=== PATIENT | female | born 1945 | race Caucasian/White ===

== ENCOUNTER → 2018-10-20 13:42 | Outpatient (CLI) | payer MEDICARE, SELFPAY ==
--- NOTE | 2018-10-20 | DI.MG.S_ITS ---
BILATERAL DIGITAL SCREENING MAMMOGRAM 3D/2D WITH CAD WITH AUGMENTATION: 10/20/2018 CLINICAL: Routine screening. Comparison is made to exams dated: 03/17/2017 mammogram, 01/20/2016 mammogram, and 03/28/2014 mammogram - [facility]. The tissue of both breasts is predominantly fatty. Current study was also evaluated with a Computer Aided Detection (CAD) system. Bilateral breast implants are stable and intact. No significant masses, calcifications, or other findings are seen in either breast. There has been no significant interval change. IMPRESSION: NEGATIVE There is no mammographic evidence of malignancy. A 1 year screening mammogram is recommended. This exam was interpreted at Station ID: [id number]. NOTE: For mammograms, a report in lay terms will be sent to the patient. Approximately 15% of breast malignancies will not be visualized mammographically. In the management of a palpable breast mass, a negative mammogram must not discourage biopsy of a clinically suspicious lesion. Electronically Signed By: Richard lazaro/dawn:10/20/2018 17:46:34 letter sent: Normal Exam ACR BI-RADS Category 1: Negative [id number]
== END ==
PROVIDERS: Visit Provider Internal Medicine
DX: Z12.31 Encounter for screening mammogram for malignant neoplasm of breast (principal); Z78.0 Asymptomatic menopausal state
CPT/HCPCS: 77063; 77067; 77080

== ENCOUNTER 2018-10-25 12:24 | Day surgery (SDC) | payer MEDICARE, SELFPAY ==
[2018-10-25] VITALS (9 sets, daily range): BP systolic 75–110; BP diastolic 51–61; PULSE 73–81; RESP 11–16; TEMP 35.9–37.4; O2SAT 91–100; BMI 25.4
[2018-10-25] MEDS: SODIUM CHLORIDE 0.9% 1,000 ML 150 ML IV (13:07)
--- NOTE | 2018-10-25 13:16 | PM.HP.1 ---
History of Present Illness History of Present Illness Date Patient Seen: 10/25/18 Time Patient Seen: 13:16 Chief complaint: [id number] Narrative: Screening for colorectal cancer. Last colonoscopy over 20 years ago Patient History Social History household members: spouse Family & Social History Social History: household members spouse Meds Home Medications and Allergies Home Medications Medication Instructions Recorded Confirmed Type ascorbic acid (vitamin C) [Vitamin 500 mg PO DAILY 10/25/18 10/25/18 History C] aspirin [Aspirin Low Dose] 81 mg PO DAILY 10/25/18 10/25/18 History atorvastatin 20 mg PO DAILY 10/25/18 10/25/18 History cholecalciferol (vitamin D3) 1,000 unit PO DAILY 10/25/18 10/25/18 History [Vitamin D3] coQ10 (ubiquinol) 300 mg PO DAILY 10/25/18 10/25/18 History diclofenac sodium [Voltaren-XR] 75 mg PO DAILY 10/25/18 10/25/18 History duloxetine 60 mg PO DAILY 10/25/18 10/25/18 History montelukast 10 mg PO QPM 10/25/18 10/25/18 History zlrffezempnd-xaua-xmacj acid 1 tab PO DAILY 10/25/18 10/25/18 History [Multi-Day with Iron] olmesartan-hydrochlorothiazide 0.5 tab PO DAILY 10/25/18 10/25/18 History [Benicar HCT] omega 4-ssp-ean-fish oil [Fish Oil] 1 cap PO DAILY 10/25/18 10/25/18 History vitamin B complex 1 tab PO DAILY 10/25/18 10/25/18 History Allergies Allergy/AdvReac Type Severity Reaction Status Date / Time No Known Drug Allergies Allergy Verified 10/25/18 13:01 Exam Vital Signs (past 8 hours): - 10/25/18 13:01 Temperature 98.2 F Pulse Rate 74 Respiratory Rate 16 Blood Pressure 110/60 Pulse Oximetry 100 Oxygen Delivery Method Room Air Narrative Exam Narrative: Oropharynx free of lesions Chest clear to auscultation and percussion Cardiac exam reveals no S3 or murmur Assessment & Plan Assessment & Plan narrative: Screening for colorectal cancer. Need for colonoscopy. Risks, benefits, alternatives have been explained.
--- NOTE | 2018-10-25 13:17 | PM.OP.ENDO ---
Operative Date/Time/Diagnoses Date of procedure: 10/25/18 Time of procedure: 13:17 Pre-op diagnosis: See indication and findings Procedure & Clinicians Study performed: Colonoscopy Same procedure as scheduled: Yes Indications: Screening Surgeon: Adrienne Liz Procedure Notes Procedure in detail: After informed consent was obtained the patient was placed in left lateral decubitus position. The video colonoscope was introduced the rectum slowly advanced to the cecum. Preparation was excellent. On slow withdrawal mucosa was carefully examined. The scope was removed. The patient tolerated the procedure well. Blood loss none Complications none Sedation Total sedation time 16 minutes Versed 4 mg fentanyl 100 micro g IV titration Findings 1. Very tortuous sigmoid colon with some diverticulosis 2 otherwise negative colonoscopy to cecum. Ms. Muniz does not need follow-up colonoscopy for 10 years. I will only have performed if she is in excellent health. All
[2018-10-25] MEDS: MIDAZOLAM 5 MG/5 ML VIAL IV (14:05)
[2018-10-25] MEDS: fentaNYL 250 MCG/5 ML INJ IV (14:05)
== END 2018-10-25 14:50 | disposition home or self-care (01) ==
LOC: ENDO 12:27
PROVIDERS: PCP Internal Medicine; Visit Provider Internal Medicine Gastroenterology
PROC: 0DJD8ZZ Inspection of Lower Intestinal Tract, Via Natural or Artificial Opening Endoscopic (ICD-10-PCS; CPT 45378; principal; 2018-10-25 13:30)
DX: Z12.11 Encounter for screening for malignant neoplasm of colon (principal); K57.30 Diverticulosis of large intestine without perforation or abscess without bleeding
CPT/HCPCS: G0121; J2250; J3010

== ENCOUNTER → 2019-03-12 13:47 | Outpatient (CLI) | payer MEDICARE, SELFPAY ==
--- NOTE | 2019-03-12 | DI.MRI.S_ITS ---
PROCEDURE: MR CERVICAL SPINE WO CON INDICATIONS: Cervicalgia TECHNIQUE: Noncontrast sagittal T1 spin echo and T2 fast spin echo, sagittal STIR, foraminal oblique sagittal T2 fast spin echo, and axial gradient echo or T2 fast spin echo through the cervical spine. COMPARISON: [facility] [place], CR, XR CERVICAL SPINE 2 OR 3 VIEWS, 02/28/2019, 15:33. [facility], , C-SPINE WITHOUT CONTRAST, 04/29/2014, 16:54. FINDINGS: Image quality: Excellent. Alignment and Curvature: Anterior fusion is present at C3-C5. There is trace anterolisthesis of C5 on C6 and trace retrolisthesis of C6 on C7. Bone Marrow: Marrow demonstrates normal overall signal. Spinal Cord: Visualized spinal cord has normal size and signal. No cerebellar tonsillar herniation. Paraspinous Soft Tissues: No paravertebral masses. Prevertebral soft tissues are normal in thickness. Mild fluid is noted within the left mastoid air cells. Recommend correlation of potential mastoiditis. Discs: Moderate to severe desiccation is present throughout the cervical spine. C2-C3: Minimal disc bulge without spinal stenosis. Mild bilateral foraminal narrowing with uncovertebral hypertrophy. C3-C4: Postsurgical changes are present. Mild spinal stenosis, improved compared to prior exam.. Mild right and minimal left foraminal narrowing with uncovertebral hypertrophy. C4-C5: Postsurgical changes are present. Mild spinal stenosis is present, mildly improved. Moderate right foraminal narrowing with uncovertebral hypertrophy. C5-C6: Postsurgical changes are present. Moderate spinal stenosis is present. Foraminal are not well visualized secondary to artifact. There is likely at least moderate bilateral foraminal narrowing. No significant interval change. C6-C7: Mild disc bulge with mild spinal stenosis. Mild bilateral foraminal narrowing, slightly progressive compared to prior exam. C7-T1: No disc bulge, spinal stenosis or foraminal narrowing. No interval change. IMPRESSION: 1. Postsurgical changes as above. 2. Multilevel degenerative and surgical changes as above with areas of progression/improvement as noted. 3. Multilevel spinal stenosis most notable at C5-6. 3. Multilevel foraminal narrowing most notable at C4-5 and C5-6. Dictated by: Yudi Kruse M.D. on 03/12/2019 at 17:05 Approved by: Yudi Kruse M.D. on 03/12/2019 at 17:17
== END ==
PROVIDERS: PCP Internal Medicine; Visit Provider Orthopaedic Surgery
DX: M54.2 Cervicalgia (principal); M47.812 Spondylosis without myelopathy or radiculopathy, cervical region; Z98.1 Arthrodesis status
CPT/HCPCS: 72141

== ENCOUNTER 2019-04-10 06:08 | Day surgery (SDC) | payer MEDICARE, SELFPAY ==
[2019-03-27 09:56] VITALS: BMI 26.9
[2019-04-10] VITALS (22 sets, daily range): BP systolic 112–161; BP diastolic 54–135; PULSE 80–107; RESP 11–79; TEMP 36.3–37.1; O2SAT 90–99; BMI 25.4
--- NOTE | 2019-04-10 | DI.RAD.S_ITS ---
PROCEDURE: XR CERVICAL SPINE 2V OR 3V INDICATIONS: C4-5, C5-6 ACDF 1 ALMAS, 1 MOBIC TECHNIQUE: 2 view(s) of the cervical spine were acquired. COMPARISON: [facility] [place], DANE, XR CERVICAL SPINE 2 OR 3 VIEWS, 02/28/2019, 15:33. FINDINGS: Bones: Immediate postoperative examination of this patient with prior anterior fusion plate crossing C3-C4 crossing C3-C4. This plate remains,, and there now has been an intervertebral staple fixation between the inferior aspect of C4 and the superior aspect of C5 with interbody disc prosthesis placed dorsal to the metallic device. Additionally, at C5-6 and articulating intervertebral disc prosthesis has been placed as a new finding. Soft tissues: No prevertebral soft tissue swelling. IMPRESSION: Stable positioning of prior anterior fusion plate crossing C3-C4. New placement of C4-5 and C5-6 intervertebral disc devices and a fusion staple. Dictated by: Anton Claudio M.D. on 04/10/2019 at 10:08 Approved by: Anton Claudio M.D. on 04/10/2019 at 10:12
[2019-04-10] MEDS: LACTATED RINGERS 1,000 ML 42 ML IV ×2 (07:00→08:45)
--- NOTE | 2019-04-10 07:14 | PM.PREOP ---
Pre-operative Note Interval Note History & Physical reviewed/Exam performed by Physician: Yes Changes to H&P: No
--- NOTE | 2019-04-10 07:31 | SUR.OPER ---
Supine, head on gel donut. Arms padded with gel pads, tucked at sides, towel roll under shoulders. Safety belt at thigh. Legs uncrossed.
[2019-04-10] MEDS: CEFAZOLIN 1 GM/50 ML FROZ.PIGGY IV ×2 (07:50→17:03)
[2019-04-10] MEDS: SODIUM CHLORIDE 0.9% 1,000 ML, GENTAMICIN 80 MG IRR (08:20)
[2019-04-10] MEDS: THROMBIN (RECOMBINANT) 5,000 UNIT VIAL 5000 UNIT TOP (08:21)
[2019-04-10] MEDS: BUPIVACAINE 0.25% W/ EPI 30 ML VIAL INJ (08:22)
--- NOTE | 2019-04-10 09:12 | PM.OP.1 ---
Operative Date/Time/Diagnoses Date of procedure: 04/10/19 Time of procedure: 09:13 Pre-op diagnosis: Cervical stenosis with myelopathy Post-op diagnosis: same Procedure & Clinicians Procedure: C4-5 ACDF with cage Iliac crest bone graft aspirate C5-6 anterior disc replacement Use of microscope Same procedure as scheduled: Yes Indications: [age] year old female with intractable pain from cervical stenosis. They had failed conservative management and requested operative intervention. Risks and benefits of surgery were discussed and appropriate consents were obtained. Surgeon: Piter Padilla Basin Finish Operator Tig Welder: Willa Cain Anesthesia Type: General Operative Notes Findings: None Closure Type: primary Specimen(s): none sent Prosthetic devices, grafts, tissues, transplants, or devices: Roseann ALMAS-C and Mobi-C Estimated Blood Loss (mL): 5 Blood products transfused: none Procedure in detail: Patient was brought to the operating room and intubated on the table. A time-out was performed. Preoperative antibiotics were given. The neck was prepped and draped in the standard sterile fashion. We made a 3 cm oblique incision through her previous cervical scar. We used Bovie to go through the platysma and then did a standard anterolateral blunt dissection down to the precervical fascia. Fascia was nicked and elevated up. A marker was placed and x-ray was taken for localization. We then subperiosteally elevated up the longus colli muscles. Self-retaining retractors were placed. [place] pins were placed. We then brought in the microscope. A scalpel used to perform an annulotomy. We then used a combination of pituitaries and curettes and Kerrison to perform a complete anterior diskectomy at C4-5. We used the bur to take down the posterior osteophytes. We took down the PLL and used Kerrison to remove any posterior disc material and osteophytes. At the end we could from the nerve hook cephalad caudally and out the foramen and everything was opened. A small stab incision was made over the left anterior iliac crest. A Jamshidi needle was advanced into the pelvis and 2 mL of bone marrow was aspirated. We then used the trials. We then packed a 15.5 x 14 x 6 mm ALMAS-C cage with Primagen bone graft and the iliac crest harvest. The cage was placed under fluoroscopic guidance. We then placed our two locking plates and confirmed with x-ray. We then went down to C5-6. Again a complete diskectomy was performed with pituitaries and Kerrisons and curettes. We did not use the bur as this was a disc replacement level. We took down the PLL and removed the posterior osteophytes. We used the parallel doweling machine operator to open up the disc space. We then trialed and then placed a [id number] Mobi-C artificial disc replacement under fluoroscopic guidance. The self-retaining retractors and [place] pins were removed and final x-rays taken. The wound was irrigated. There was no bleeding. The carotid was beating nicely. The platysma was closed. The superficial was closed. The skin was closed. A sterile dressing was placed. They were then extubated and brought to recovery room with no complications. Complications: none Post-operative Condition: stable Disposition: PACU Plan for aftercare: Inpatient. Overnight admission. Mobilize as tolerated. Soft cervical collar for comfort
[2019-04-10] MEDS: HYDROMORPHONE 2 MG INJ IV ×4 (09:38→10:25)
[2019-04-10] MEDS: fentaNYL 100 MCG/2 ML INJ IV ×2 (09:57→10:02)
[2019-04-10] MEDS: OXYCODONE/ACETAMINOPHEN 5/325 TABLET 1 TAB PO ×2 (10:32→10:58)
[2019-04-10] MEDS: LACTATED RINGERS 1,000 ML 125 ML IV ×2 (12:21→21:38)
--- NOTE | 2019-04-10 12:36 | PC.ADMIT ---
[email or web address] [facility] Admission Note: The patient,Tanesha Muniz,73 y/o, was given written information regarding hospital policies, unit procedures and contact persons. Patient's smoking status: Former smoker. Vital Signs - 8 hr 04/10/19 06:50 04/10/19 09:27 04/10/19 09:33 Temperature 97.9 F 97.3 F L Pulse Rate 80 89 88 Respiratory Rate 15 24 21 Blood Pressure 145/81 H 115/64 114/60 Pulse Oximetry 99 94 97 04/10/19 09:38 04/10/19 09:42 04/10/19 09:47 Temperature Pulse Rate 83 85 98 H Respiratory Rate 12 11 L 17 Blood Pressure 121/73 126/70 127/72 Pulse Oximetry 96 97 98 04/10/19 09:53 04/10/19 09:58 04/10/19 10:03 Temperature Pulse Rate 94 H 95 H 106 H Respiratory Rate 22 71 H 79 H Blood Pressure 116/73 161/135 H 119/54 L Pulse Oximetry 96 95 96 04/10/19 10:08 04/10/19 10:12 04/10/19 10:18 Temperature Pulse Rate 97 H 103 H 99 H Respiratory Rate 27 H 26 H 27 H Blood Pressure 121/70 131/69 112/64 Pulse Oximetry 94 94 94 04/10/19 10:33 04/10/19 10:48 04/10/19 11:03 Temperature Pulse Rate 98 H 97 H 105 H Respiratory Rate 18 13 13 Blood Pressure 128/55 L 124/70 118/63 Pulse Oximetry 93 92 91 04/10/19 11:30 04/10/19 11:51 04/10/19 12:00 Temperature 98.7 F 98.1 F 97.8 F Pulse Rate 107 H 107 H 105 H Respiratory Rate 12 12 14 Blood Pressure 135/71 135/71 133/70 Pulse Oximetry 90 L 90 L 94 04/10/19 12:30 Temperature 98.0 F Pulse Rate 93 H Respiratory Rate 16 Blood Pressure 125/62 Pulse Oximetry 94 Patient came to acute care floor at 1130. Patient is accompanied by her . Patient attempted to void on bedside commode, but was unable to. Bladder scanner read 220mL, patient educated to try again with assistance soon. Will continue to monitor for bladder retention. Patient did have some dizziness while standing and de-sats to 88% on RA initially, but was able to transfer to bedside commode with FWW and 1 person 1ea to get to the side of the bed and SBA ambulating. O2 saturation was able to increase with use of IS. Patient states her pain is tolerable at 4/10 currently. Dressing to incision was marked by PACU, noting shadowing serosanguineous drainage. Patient currently resting in bed with ice pack and cervical collar in place.
[2019-04-10] MEDS: TRAMADOL 50 MG TABLET PO ×3 (13:38→21:36)
--- NOTE | 2019-04-10 14:06 | CM.DANOTE ---
DCP: Case received, EMR reviewed and met with patient. Introduced self and role. Was able to meet with patient briefly to obtain some information regarding her baseline activity level and living situation. DCP assessment completed with information currently available. Patient is a 73 year old female who admitted early this morning to the care of the orthopedic team. PCP: Dr. Soto. Payer: confirmed: Medicare/[employer]. Patient came to the hospital for a surgical procedure. She had C4-5 ACDF. Patient has history of cervical stenosis. Met briefly with patient in her room. She just had surgery this morning. Patient laying flat in the bed with cervical collar. She is alert and oriented. Confirmed that she resides in [facility] with her , Kishore. She is independent and has been driving. Patient also mentioned that she has history of Fibramylgia. P: DCP to continue to follow closely. Patient should be able to go home when she is medically stable, and cleared by Angela Gibson RN/Director Of Cardiopulmonary Services
--- NOTE | 2019-04-10 14:55 | PT.IIE ---
Current Diagnoses Strain of muscle, fascia and tendon at neck level, initial encounter (04/10/19) Arthrodesis status (04/10/19) Surgery Performed Operation Date: 04/10/19 07:45 Actual Procedures p C45 anterior cervical discectomy and fusion w/bone graft, C56 anterior discectomy and artificial disc replacement - Piter Padilla MD Surgical History (Last Updated 03/27/19 @ 10:01 by Xenia Santos RN) History of hysterectomy (Acute) Hx of blepharoplasty (Acute) Hx of breast augmentation (Acute) Hx of tonsillectomy (Acute) S/P cervical spinal fusion (Acute ~2015) Status post Mohs micrographic surgery for basal cell carcinoma (BCC) (Acute) Medical History (Last Updated 03/27/19 @ 10:28 by Xenia Santos RN) Ankle fracture, right (Acute) Anxiety (Acute) Arthritis (Acute) Fibromyalgia (Acute) Heart murmur (Acute) HTN (hypertension) (Acute) Hx of ectopic (Acute) Iron deficiency anemia (Acute) Syncope (Acute) Physical Therapy Inpatient Evaluation/Re-Eval M1 PT/OT-IP Prior Functional Status Start: 04/10/19 17:20 Freq: NEEDED Status: Active Protocol: Document 04/10/19 14:55 AB (Rec: 04/10/19 17:38 AB [id number]) Medical Review Prior Functional Status Medical History Reviewed Yes Communication able to make needs known Mobility and Gait pt stated that she is independent with all mobilities and ambulation without AD Social History Household Members spouse Living Arrangements House Number of Floors (Floors) Two Floors Number of Stairs To Enter/Railing? pt stays on main level of the house 2 steps to enter without rails to enter Home Environment Standard Height Toilet,Walk in Shower,Built-In Shower Seat Home Equipment Hand Held Shower,Grab Bars In Shower M2 PT-IP Current Condition Start: 04/10/19 17:20 Freq: NEEDED Status: Active Protocol: Document 04/10/19 14:55 AB (Rec: 04/10/19 17:38 AB [id number]) Physical Therapy Current Condition Current Condition Evaluation Date 04/10/19 Treatment Diagnosis s/p C4-5 ACDF; C5-6 anterior disc replacement; difficulty in walking Onset Date 04/10/2019 Precautions Cervical Spine Precautions No Heavy Lifting,Log Roll M3 PT-IP Subjective Start: 04/10/19 17:20 Freq: NEEDED Status: Active Protocol: Document 04/10/19 14:55 AB (Rec: 04/10/19 17:38 AB [id number]) Subjective Physical Therapy Visit Type Type Initial Evaluation Visit Start Time 14:55 Visit Stop Time 15:26 Total Visit Minutes 31 Number of JUMPBASTING COLLAR BASTER Visits 0 Physical Therapy Visit Comments Patient Comments pt agreeable to do PT Therapy Pain Assessment Pain When Pain Assessed At Rest Pain Present Pain Present Pain Reported Location neck/left shoulder Intensity 5 Scale Used Numeric (1 - 10) Pain Management Techniques Apply Cold,Modification of Treatment,Re-positioning, Timing of Activity with Medications M4 PT-IP Mobility and Gait Start: 04/10/19 17:20 Freq: NEEDED Status: Active Protocol: Document 04/10/19 14:55 AB (Rec: 04/10/19 17:38 AB [id number]) PT-Bed Mobility Assessment Rolling Type of Rolling Log Rolling Level of Assist Contact Guard Assistance Supine to Sit Supine to Sit Contact Guard Assistance Sit to Supine Sit to Supine Minimal Assistance,1 Person Assistance PT-Transfer Assessment Sit to and From Stand Sit to and from Stand Minimal Assistance,1 Person Assistance,Use of Upper Extremities Equipment Transfer Assistive Device Gait Belt Orthotic/Prosthetic Devices or Brace: Yes Comments Mobility Comments pt educated on cervical precautions and log roll bed mobility. completed supine to sit CGA and max cues for techniques. pt was able to sit on EOB SBA. pt complete sit to stand min A an cues. ambulated towards the sink without AD min A and cues. pt presents with unsteady gait and instructed pt to use FWW but pt refused. stated that she feels steady. educated pt on how to manage her cervical collar but requires assistance with donning/ doffing collar at this time. stated that her spouse will be able to assist her. pt ambulated in room ~ 20 ft witout AD min A and continues to be unsteady. educted pt on safety and use of FWW at this time. pt agreed. pt requested to go back to bed; stated that she feels home pain with upright posture. pt completed sit to supine min A and cues. positioned pt in bed. ice pack provided. call light and table placed within reach. Gait Assessment Gait Gait Assistance Required: Minimum Assistance Distance (Feet) 20 Able to Maintain Weight Bearing Status Yes During Gait Assistive Devices Assistive Device None,Gait Belt Gait Deviations General Gait Pattern Antalgic,Decreased Stride Length,Decreased Feet Clearance Factors Limiting Gait Function Factors Limiting Gait Function Decreased Activity Tolerance, Decreased Strength,Limited Range of Motion,Pain,Poor Balance,Poor Safety Awareness Comments Gait Comments pls refer to mobility section for details. presents with unsteady gait with decrease step length. PT-Balance Assessment Sitting Balance and Reactions Static Sitting Balance Ability Good Dynamic Sitting Balance Ability Good Standing Balance and Reactions Static Standing Balance Ability Fair Dynamic Standing Balance Ability Fair Device Used without AD M5 PT-IP Objective Assessments Start: 04/10/19 17:20 Freq: NEEDED Status: Active Protocol: Document 04/10/19 14:55 AB (Rec: 04/10/19 17:38 AB [id number]) Orientation Orientation/Cognition Level of Alertness Alert Orientation Name,Place,Situation Safety Awareness Decreased Safety Awareness Gross Range of Motion Lower Extremity ROM Assessment Within Functional Limits Strength Lower Extremity Strength Assessment Within Functional Limits Coordination Assessment Gross Coordination Gross Coordination WNL Sensation Assessment Sensation Gross Sensation Left UE Impaired Sensation Description Numbness,Tingling Comments Sensation Comments L finger tips numbness/ tingling Muscle Tone Muscle Tone WNL Yes M6 PT-IP Treatment Start: 04/10/19 17:20 Freq: NEEDED Status: Active Protocol: Document 04/10/19 14:55 AB (Rec: 04/10/19 17:38 AB [id number]) Physical Therapy Treatment Education Education Provided Precautions,Post-Op Packet, Safety Brace Education Donning,Poca,Patient M7 PT-IP Assessment and Plan Start: 04/10/19 17:20 Freq: NEEDED Status: Active Protocol: Document 04/10/19 14:55 AB (Rec: 04/10/19 17:38 AB [id number]) PT Summary Assessment and Plan Potential Rehabilitation Potential Good Status of Condition at Evaluation Stable Summary Impairments Pain,ROM,Strength,Balance, Coordination,Sensation, Cognition,Bed Mobility, Transfers,Gait,Activity Tolerance Assessment Summary pt requiring min A with transfers and ambulation without AD. pt just had surgery this morning. d/c plan depending on progress and will conduct caregiver when appropriate. pt also has steps to enter the house and will complete stair training prior to d/c. will need further assessment for safe d/ c plan and if pt will require AD for ambulation depending on how pt mobilizes next tx session. Goals Bed Mobility Goal Independent Transfer Goal Independent,Front Wheeled Walker Gait Goal Independent,Front Wheel Walker Gait Distance 200 Other Goals will improve ambulation without AD ~ 250 ft SBA will be able to complete 2 steps without rails SBA Days to Meet Goals 3 Frequency of Treatment Frequency Of Treatment Twice a Day Treatment Plan Physical Therapy Treatment Plan Bed Mobility Training,Transfer Training,Gait Training, Therapeutic Exercise,Balance Retraining,Post Op Education, Discharge Planning,Hot or Cold Pack,Neuromuscular Re-ed, Coordination Retraining,Manual Therapy Recommendations To Nursing Amount of Assist Needed 1 Person Assist Discharge Recommendations PT Discharge Recommendations Home with 06/09 Assist Transportation Needs at Discharge Private Vehicle
[2019-04-10] MEDS: MONTELUKAST 10 MG TABLET PO (17:03)
[2019-04-10] MEDS: DEXAMETHASONE 4 MG/ML VIAL IV (17:04)
--- NOTE | 2019-04-10 18:19 | SLP.IPNOTE ---
Orders received and chart reviewed. Attempted to see pt but pt was sleepy post-operatively. Will attempt again tomorrow.
[2019-04-10] MEDS: ACETAMINOPHEN 325 MG TABLET 650 MG PO (21:36)
[2019-04-10] MEDS: DOCUSATE 100 MG CAPSULE PO (21:37)
[2019-04-10] MEDS: GABAPENTIN 300 MG CAPSULE PO (21:37)
[2019-04-10] MEDS: ATORVASTATIN 20 MG TABLET PO (21:37)
--- NOTE | 2019-04-10 23:41 | PC.NURSE ---
Evening note: Tanesha awake, Ox3 & situation. At 1st assessment she reported pain 6/10 to neck, reporting that PO Tramadol & IV steroid have helped tonight, now rating pain at 4. Declined Valium, telling me I took that once a long time ago & I hallucinated--I never want that again. VS stable, RA oxygen high 90's. Pt swallowing ok but could not tolerate eating her salmon, able to eat mashed potatoes & chicken noodle soup. Clearing throat occasionally. Took pills one at-a-time with water, slowly. Declined need for applesauce. Anterior neck drsg is dry/intact, shadow drainage outside of previous pen magui (on right) so I re-marked new shadow drainage with 2nd line to the right at middle of gauze/tegaderm drsg. Soft collar on for support. Voided twice tonight, denies difficulty. Fall precautions in place tonight, patient now dozing. Alarm active for safety.
[2019-04-11 00:15] VITALS: BP 134/72; PULSE 100; RESP 20; TEMP 36.4; O2SAT 97
[2019-04-11] MEDS: DEXAMETHASONE 4 MG/ML VIAL IV ×3 (00:20→12:44)
[2019-04-11] MEDS: CEFAZOLIN 1 GM/50 ML FROZ.PIGGY IV (00:20)
[2019-04-11 03:06] VITALS: BP 149/81; PULSE 90; RESP 20; TEMP 36.7; O2SAT 97
[2019-04-11] MEDS: TRAMADOL 50 MG TABLET PO ×3 (03:29→12:44)
[2019-04-11 05:10] VITALS: BP 149/81; PULSE 90; RESP 20; TEMP 36.7; O2SAT 96
[2019-04-11 08:00] VITALS: BP 152/81; PULSE 95; RESP 16; TEMP 37.3; O2SAT 96
--- NOTE | 2019-04-11 08:21 | PM.PNPO.1 ---
Subjective Subjective Date Patient Seen: 04/11/19 Time Patient Seen: 08:21 Interval history: Pain is much better today and the left arm is feeling much better as well. Exam Vital Signs (past 8 hours): - 04/11/19 03:06 04/11/19 05:10 Temperature 98.1 F 98.1 F Pulse Rate 90 90 Respiratory Rate 20 20 Blood Pressure 149/81 H 149/81 H Pulse Oximetry 97 96 Oxygen Delivery Method Room Air Oxygen Flow Rate 0 Const Orientation: alert and oriented x3 Back/Spine/Pelvis Other: Mild drainage. 5/5 motor both upper extremities. Assessment & Plan Post-op Postoperative Procedures: Procedures Operation Date: 04/10/19 07:45 Actual Procedures Side Surgeon p C45 anterior cervical discectomy and fusion w/bone graft, C56 anterior discectomy and artificial disc replacement Piter Padilla MD She is doing well. Plan for discharge home today. Quality VTE Deep Vein Thrombosis/Pulmonary Embolism Present on Admission: No
--- NOTE | 2019-04-11 08:30 | ST.IPCSEOM ---
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 She has a history of dysphagia following ACDF surgery 5 years ago. She had a modified barium swallow in 2014 which revealed penetration with thin liquids and esophageal dysmotility. She reports her symptoms have improved since receiving dysphagia therapy; although she occasionally has globus sensation when eating certain foods such as salad. Subjective Observations Patient is alert, oriented and cooperative. Findings Impressions Patient is experiencing some coughing after PO intake. She has good insight into which foods are appropriate at this time. She was able to eat mashed potatoes with gravy, but had difficulty with salmon last night due to the dry texture. We discussed use of extra sauces/gravies for ease of swallowing. Patient states she had a sore throat yesterday, but denies pain when swallowing today. Given her history of dysphagia, it was recommended that she notify her physician at the time of her 3 week follow-up appointment if she continues to have coughing with intake or difficulty with clearance of food/liquid. No further dysphagia therapy recommended at this time as patient's symptoms are consistent with post-surgical dysphagia which is expected to improve with time. Diet Recommendations Liquids Order Thin Diet Order Regular Medication Recommendations As Tolerated Aspiration Precautions Recommended Precautions Upright at 90 Degrees, Alternate Liquids/Solids,Small Bites/Sips Treatment Plan Placement Recommendations after Home Discharge Appropriate for Therapy No
[2019-04-11] MEDS: ACETAMINOPHEN 325 MG TABLET 650 MG PO (09:00)
[2019-04-11] MEDS: DOCUSATE 100 MG CAPSULE PO (09:02)
[2019-04-11] MEDS: ASPIRIN EC 81 MG TABLET PO (09:02)
[2019-04-11] MEDS: DULOXETINE 30 MG CAPSULE 60 MG PO (09:02)
[2019-04-11] MEDS: VITAMIN B COMPLEX 1 CAPSULE 1 CAP PO (09:02)
[2019-04-11] MEDS: DICLOFENAC 75 MG DR TABLET PO (09:03)
--- NOTE | 2019-04-11 09:20 | PT.IPTN ---
Current Diagnoses Strain of muscle, fascia and tendon at neck level, initial encounter (04/10/19) Arthrodesis status (04/10/19) Surgery Performed Operation Date: 04/10/19 07:45 Actual Procedures p C45 anterior cervical discectomy and fusion w/bone graft, C56 anterior discectomy and artificial disc replacement - Piter Padilla MD Physical Therapy Treatment Note M2 PT-IP Current Condition Start: 04/10/19 17:20 Freq: NEEDED Status: Active Protocol: Document 04/10/19 14:55 AB (Rec: 04/10/19 17:38 AB [id number]) Physical Therapy Current Condition Current Condition Evaluation Date 04/10/19 Treatment Diagnosis s/p C4-5 ACDF; C5-6 anterior disc replacement; difficulty in walking Onset Date 04/10/2019 Precautions Cervical Spine Precautions No Heavy Lifting,Log Roll M3 PT-IP Subjective Start: 04/10/19 17:20 Freq: NEEDED Status: Active Protocol: Document 04/11/19 09:20 AB (Rec: 04/11/19 11:18 AB [id number]) Subjective Physical Therapy Visit Type Type Treatment Note Visit Start Time 09:20 Visit Stop Time 09:35 Total Visit Minutes 15 Number of CONTRACT PROCESSOR Visits 0 Physical Therapy Visit Comments Patient Comments pt agreeable to do PT Therapy Pain Assessment Pain When Pain Assessed At Rest Pain Present Pain Present Pain Reported Location neck/left shoulder Intensity 7 Scale Used Numeric (1 - 10) Pain Management Techniques Apply Cold,Timing of Activity with Medications M4 PT-IP Mobility and Gait Start: 04/10/19 17:20 Freq: NEEDED Status: Active Protocol: Document 04/11/19 09:20 AB (Rec: 04/11/19 11:18 AB [id number]) PT-Bed Mobility Assessment Rolling Type of Rolling Log Rolling Level of Assist Standby Assistance Supine to Sit Supine to Sit Standby Assistance Sit to Supine Sit to Supine Standby Assistance PT-Transfer Assessment Sit to and From Stand Sit to and from Stand Standby Assistance Equipment Transfer Assistive Device Gait Belt Orthotic/Prosthetic Devices or Brace: Yes Comments Mobility Comments pt supine in bed and stated that she just finished with OT but willing to do PT. completed supine to sit log roll SBA. ambulated towards the stairs without AD SBA ~ 300 ft. completed up/down steps CGA to min and cues without rails. spouse will be able to assist pt. pt ambulated back to her room. requested to go back to bed. completed sit to supine SBA. positioned in bed. call light and table placed within reach .. ice pack provided. Gait Assessment Gait Gait Assistance Required: Standby Assistance Distance (Feet) 300 Able to Maintain Weight Bearing Status Yes During Gait Assistive Devices Assistive Device None,Gait Belt Gait Deviations General Gait Pattern Antalgic Factors Limiting Gait Function Factors Limiting Gait Function Decreased Activity Tolerance, Decreased Strength,Limited Range of Motion,Pain,Poor Balance,Poor Safety Awareness Comments Gait Comments ambulated ~ 300 ft x 2 without AD SBA. no LOB but with gait deviation. Stair Climbing Assessment Evaluation Level of Assist On Stairs Contact Guard Assistance, Minimal Assistance,1 Person Assistance Devices Stair Climbing Assistive Devices None Technique/Endurance Stair Climbing Direction Ascend and Descend Stair Climbing Technique Step to Step Number of Steps Climbed 3 Stair Climbing Set # Repetitions (reps) 5 M5 PT-IP Objective Assessments Start: 04/10/19 17:20 Freq: NEEDED Status: Active Protocol: Document 04/10/19 14:55 AB (Rec: 04/10/19 17:38 AB [id number]) Orientation Orientation/Cognition Level of Alertness Alert Orientation Name,Place,Situation Safety Awareness Decreased Safety Awareness Gross Range of Motion Lower Extremity ROM Assessment Within Functional Limits Strength Lower Extremity Strength Assessment Within Functional Limits Coordination Assessment Gross Coordination Gross Coordination WNL Sensation Assessment Sensation Gross Sensation Left UE Impaired Sensation Description Numbness,Tingling Comments Sensation Comments L finger tips numbness/ tingling Muscle Tone Muscle Tone WNL Yes M6 PT-IP Treatment Start: 04/10/19 17:20 Freq: NEEDED Status: Active Protocol: Document 04/10/19 14:55 AB (Rec: 04/10/19 17:38 AB [id number]) Physical Therapy Treatment Education Education Provided Precautions,Post-Op Packet, Safety Brace Education [place],Patient M7 PT-IP Assessment and Plan Start: 04/10/19 17:20 Freq: NEEDED Status: Active Protocol: Document 04/11/19 09:20 AB (Rec: 04/11/19 11:18 AB [id number]) PT Summary Assessment and Plan Potential Rehabilitation Potential Good Summary Impairments Pain,ROM,Strength,Balance, Sensation,Bed Mobility, Transfers,Gait,Activity Tolerance Progress Towards Goals Progressing Toward Goals Assessment Summary pt requiring SBA with transfers and ambulation but requires CGA to min A with stair climbing. pt stated that her spouse will assist her. pt plans to go home later today. Goals Bed Mobility Goal Independent Transfer Goal Independent,Front Wheeled Walker Gait Goal Independent,Front Wheel Walker Gait Distance 200 Other Goals will improve ambulation without AD ~ 250 ft SBA will be able to complete 2 steps without rails SBA Days to Meet Goals 3 Frequency of Treatment Frequency Of Treatment Twice a Day Treatment Plan Physical Therapy Treatment Plan Bed Mobility Training,Transfer Training,Gait Training, Therapeutic Exercise,Balance Retraining,Post Op Education, Discharge Planning,Hot or Cold Pack,Neuromuscular Re-ed, Coordination Retraining,Manual Therapy Recommendations To Nursing Amount of Assist Needed 1 Person Assist Discharge Recommendations PT Discharge Recommendations Home with Assistance Transportation Needs at Discharge Private Vehicle
--- NOTE | 2019-04-11 09:23 | OT.IP.EVAL ---
Current Diagnoses Strain of muscle, fascia and tendon at neck level, initial encounter (04/10/19) Arthrodesis status (04/10/19) Surgery Performed Operation Date: 04/10/19 07:45 Actual Procedures p C45 anterior cervical discectomy and fusion w/bone graft, C56 anterior discectomy and artificial disc replacement - Piter Padilla MD Past Medical History (Last Updated 03/27/19 @ 10:28 by Xenia Santos RN) Ankle fracture, right (Acute) Anxiety (Acute) Arthritis (Acute) Fibromyalgia (Acute) Heart murmur (Acute) HTN (hypertension) (Acute) Hx of ectopic (Acute) Iron deficiency anemia (Acute) Syncope (Acute) Surgical History (Last Updated 03/27/19 @ 10:01 by Xenia Santos RN) History of hysterectomy (Acute) Hx of blepharoplasty (Acute) Hx of breast augmentation (Acute) Hx of tonsillectomy (Acute) S/P cervical spinal fusion (Acute ~2015) Status post Mohs micrographic surgery for basal cell carcinoma (BCC) (Acute) Occupational Therapy Inpatient Evaluation/Re-Eval M1 PT/OT-IP Prior Functional Status Start: 04/11/19 10:26 Freq: NEEDED Status: Active Protocol: Document 04/11/19 08:50 [facility] (Rec: 04/11/19 10:42 [facility] [id number]) Medical Review Prior Functional Status Medical History Reviewed Yes Communication able to make needs known Mobility and Gait pt stated that she is independent with all mobilities and ambulation without AD Activities of Daily Living and IADL's Pt states just having to assist to help get her into and out of the shower. In addition not able to stand for long periods of time. Social History Household Members spouse Living Arrangements House Number of Floors (Floors) Two Floors Number of Stairs To Enter/Railing? pt stays on main level of the house 2 steps to enter without rails to enter Home Environment Standard Height Toilet,Walk in Shower,Built-In Shower Seat Home Equipment Hand Held Shower,Grab Bars In Shower M2 OT-IP Current Condition Start: 04/11/19 10:26 Freq: Status: Active Protocol: Document 04/11/19 08:50 [facility] (Rec: 04/11/19 10:42 [facility] [id number]) Occupational Therapy Current Condition Current Condition Evaluation Date 04/11/19 Treatment Diagnosis C4-5 ACDF, C5-6 anterior disc replacement Diagnosis Onset Date 04/11/19 Post Operative Precautions Cervical Spine Precautions Soft Collar for Comfort,No Heavy Lifting,Log Roll Weight Bearing Status Weight Bearing Status Full Weight Bearing M3 OT- IP Subjective and Pain Start: 04/11/19 10:26 Freq: Status: Active Protocol: Document 04/11/19 08:50 [facility] (Rec: 04/11/19 10:42 [facility] [id number]) OT- Subjective Occupational Therapy Visit Type Type Initial Evaluation Visit Start Time 08:50 Visit Stop Time 09:23 Total Visit Minutes 33 Occupational Therapy Visit Comments Patient Comments Pt agreeable to do OT eval. Patient/Caregiver Goals Pt states to go home and be pain free when doing ADL and IADL needs. OT Pain Assessment Pain When Pain Assessed At Rest Pain Present Pain Present Pain Reported Location neck/left shoulder Intensity 7 Scale Used Numeric (1 - 10) M4 OT- IP ADL's Start: 04/11/19 10:26 Freq: Status: Active Protocol: Document 04/11/19 08:50 [facility] (Rec: 04/11/19 10:42 [facility] [id number]) OT [id number] General Evaluation Self-Feeding Ability Independent Comments OT Self-Feeding Comments Noted some coughing after eating, pt states attributes to her having allergies. Educated to eat softer food and upright. Pt having to use the yogurt to help get her pills down. OT ADL-Grooming General Evaluation Grooming Ability Standby Assistance Comments OT Grooming Comments VC to lean forward at her hips in order to spit into the sink. OT ADL-Oral Care General Eval Oral Care Ability Independent OT ADL-Dressing General Eval Lower Body Dressing Ability Independent Comments OT Dressing Comments Pt able to comfortably cross her legs over to greg/dof socks. Pt able to don/doff soft collar after education. OT ADL-Toileting Comments OT Toileting Comments Pt able to comfortable reach to wipe and follow cervical precautions. Suggested for pt to wear pad at night do not having to hurry to the bathroom and also to let her know when she is getting up to use the bathroom at night. OT ADL-Bathing Comments OT Bathing Comments Pt states has a built in seat in the shower and HHSP and that her will assist with needs. M5 OT- IP IADL's Start: 04/11/19 10:26 Freq: Status: Active Protocol: Document 04/11/19 08:50 [facility] (Rec: 04/11/19 10:42 [facility] [id number]) OT-Instrumental Activities of Daily Living Deficits IADL Deficits Identified No Deficits Home Safety Awareness Awareness of Need for Assistance at Home Good Awareness Ability to Problem Solve Emergency Able to Problem Solve Situations Meal Preparation Meal Preparation Caregiver Provides Assist Mammal Control Agent Mammal Control Agent Caregiver Provides Assist Driving Driving Caregiver Provides Assist M6 OT- IP Functional Cognition Start: 04/11/19 10:26 Freq: Status: Active Protocol: Document 04/11/19 08:50 [facility] (Rec: 04/11/19 10:42 [facility] [id number]) Cognitive Factors Limiting Selfcare Function Cognitive Ability Level of Alertness Alert Patient Orientation Name,Age,Birthday,Month,Date, Year,Day of Week,Place, Situation Attention Span Ability Capable of Focused Attention, Capable of Sustained Attention Ability to Follow Commands Able to Follow Multi-Step Commands Memory Description No Deficits Noted Safety Awareness Decreased Ability to Apply Precautions Cognitive Comments Cognitive Assessment Comments Pt needing reminders to do log rolling for bed mobility, otherwise no cognitive deficits noted. Pt able to problem solve to make sure wears his hearing aids or have cell phone on him at all times. Also suggested to pt to have a coles/whistle in case her forgets to wear his hearing aids. OT- Vision and Hearing OT- Hearing Assessment OT- Hearing Assessment WFL OT- Vision Assessment Visual Acuity WFL M7 OT- IP Mobility and Balance Start: 04/11/19 10:26 Freq: Status: Active Protocol: Document 04/11/19 08:50 [facility] (Rec: 04/11/19 10:42 [facility] [id number]) OT- Bed Mobility Assessment Rolling Type of Rolling Bilateral Level of Assistance Standby Assistance Supine to Sit Supine to Sit Assist Standby Assistance Sit to Supine Sit to Supine Assist Standby Assistance OT-Transfer Assessment Sit to and From Stand Sit to and from Stand Standby Assistance Transfers Transfer Ability Standby Assistance Technique Transfer Destination Bed,Toilet Transfer Technique Stand Step Pivot Devices Transfer Assistive Devices Gait Belt Comments Mobility Comments Mainly SBA due ot reminders to do long rolling. Otherwise pt was distant supervision while walking in the room with no device. OT- Balance Assessment Sitting Balance and Reactions Static Sitting Balance Ability Normal Dynamic Sitting Balance Ability Normal Standing Balance and Reactions Static Standing Balance Ability Good M8 OT- IP Objective Assessments Start: 04/11/19 10:26 Freq: Status: Active Protocol: Document 04/11/19 08:50 [facility] (Rec: 04/11/19 10:42 [facility] [id number]) OT Gross Range of Motion Upper Extremity Range of Motion Assessment Left Impaired ROM Impairments LUE shoulder flexion 0-100 M9 OT- IP Assessment and Plan Start: 04/11/19 10:26 Freq: Status: Active Protocol: Document 04/11/19 08:50 [facility] (Rec: 04/11/19 10:42 [facility] [id number]) OT Summary Assessment and Plan Potential Rehabilitation Potential Excellent Analytic Complexity at Evaluation Low Summary OT Impairments Bathing Progress Towards Goals Progressing Toward Goals Assessment Summary Pt Low complexity and doing well and mainly just needing SBA for all needs and occasional reminders to do log rolling. Pt has a supportive that will assist pt at home. Goals Patient/Caregiver Education Goal Demonstrate Post-Op Precautions,Caregiver Independent Assisting Patient Days to Meet Goals 1 Frequency of Treatment Frequency Of Treatment Once a Day Treatment Plan OT Treatment Plan ADL Training,Patient/Family Education,Discharge Planning Discharge Recommendations OT Discharge Recommendations Home with Assistance Transportation Needs at Discharge Private Vehicle
--- NOTE | 2019-04-11 13:24 | PC.NURSE ---
Dressing to neck changed per orders, patient tolerated well. Wearing soft collar. Tolerated lunch well, states it is better with swallowing soft foods. Discharge instructions and home care, including medications reviewed with patient and her . They state understanding and have no further questions or concerns at this time. IV removed intact. Patient states she has follow up appointments scheduled. Prescription given to patient to fill at pharmacy of choice. Patient instructed to notify surgeon for questions or concerns, including fevers, chills, bleeding, drainage, new numbness or tingling.
--- NOTE | 2019-04-11 16:01 | CM.DPC ---
DCP Discharge Home Per Ortho MD, pt medically stable to d/c home today with family assist and no identified barriers to discharge. Per PT, completed CG training and stairs and recommending safe d/c home with spouse assist. Plan: Patient to d/c home today via spouse POV and no SW needs at this time. ELIER Grajeda
== END 2019-04-11 13:30 | disposition home or self-care (01) ==
LOC: AC 15:38 → OR 04-11 14:26
PROVIDERS: PCP Internal Medicine; Referring Provider Internal Medicine; Visit Provider Orthopaedic Surgery
PROC: (CPT 22856; principal; 2019-04-10 07:45)
DX: M48.02 Spinal stenosis, cervical region (principal); S16.1XXA Strain of muscle, fascia and tendon at neck level, initial encounter; G95.20 Unspecified cord compression; Z98.1 Arthrodesis status
CPT/HCPCS: 22856; 20939; 22551; 22853; 72040; 76000; 92610; 97116; 97161; 97165; 97535; C1776; J1100; J1170; J2405; J2704; J3010

== ENCOUNTER → 2019-07-19 13:12 | Outpatient (CLI) | payer MEDICARE, SELFPAY ==
[2019-04-10 11:38] VITALS: BMI 25.4
--- NOTE | 2019-07-19 | DI.CT.S_ITS ---
PROCEDURE: CT CERVICAL SPINE WO CON INDICATIONS: Strain of muscle, fascia and tendon at neck level TECHNIQUE: Noncontrast 3 mm thick sections acquired from the skull base to the T4 level. Sagittal and coronal reformats were then constructed. For radiation dose reduction, the following was used: automated exposure control, adjustment of mA and/or kV according to patient size. COMPARISON: [facility], CR, XR CERVICAL SPINE 2V OR 3V, 04/10/2019, 9:27. [facility] [place], CR, XR CERVICAL SPINE 2 OR 3 VIEWS, 02/28/2019, 15:33. [facility] [place], CR, XR CERVICAL SPINE 2 OR 3 VIEWS, 07/11/2019, 13:34. FINDINGS: Image quality: Excellent. Bones: No fractures or dislocations. Prior anterior cervical fusion plating with interbody presumed r allograft is noted,, showing no evidence of device loosening or disruption. This is equivalent to the prior appearance by plain film 02/28/19. A subsequent operative procedure 04/10/19 was performed with a interbody fixation and this prosthesis at C4-C5 and interbody disc prosthesis, articulating, at C5-C6. All of these devices appear free of significant displacement, disruption or loosening. Visualized superior ribs are intact. Soft tissues: Prevertebral soft tissues are normal in thickness. No paravertebral hematomas. No apical pneumothoraces. IMPRESSION: Stable postoperative changes as noted. Prior anterior fusion plating between C3 and C4, and subsequent additional operative intervention at the 2 immediate adjacent lower levels again noted. No abnormal fluid collection is suspected. Dictated by: Anton Claudio M.D. on 07/19/2019 at 14:45 Approved by: Anton Claudio M.D. on 07/19/2019 at 14:50
== END ==
PROVIDERS: PCP Internal Medicine; Referring Provider Orthopaedic Surgery; Visit Provider Orthopaedic Surgery
DX: S16.1XXA Strain of muscle, fascia and tendon at neck level, initial encounter (principal); R29.898 Other symptoms and signs involving the musculoskeletal system; Z98.1 Arthrodesis status
CPT/HCPCS: 72125

== ENCOUNTER → 2019-09-03 20:23 | Outpatient (ROUT) | payer MEDICARE, SELFPAY ==
[2019-04-10 11:38] VITALS: BMI 25.4
[2019-09-03 21:03] LABS: Aspartate Aminotransferase 50 IU/L (14-36); BUN Creatinine Ratio 35.2 (6-22); Blood Urea Nitrogen 31 mg/dL (7-17); Carbon Dioxide 27 mmol/L (22-32); Chloride 103 mmol/L (98-107); Cholesterol 174 mg/dL (140-199); Estimated Glomerular Filt Rate > 60.0 mL/min (>60); Glucose 116 mg/dL (80-110); HDL Cholesterol 52 mg/dL (40-60); HEMOLYSIS < 15 (0-50); LDL Cholesterol Calculated 97 mg/dL (<100); Sodium 138 mmol/L (137-145); Triglycerides 123 mg/dL (35-150)
[2019-09-03 21:33] LABS: TSH w/ Reflex to FT4 0.08 uIU/mL (0.47-4.68)
[2019-09-03 22:23] LABS: Free T4, Direct Thyroxine 1.05 ng/dL (0.78-2.19)
== END ==
PROVIDERS: PCP Internal Medicine; Visit Provider Internal Medicine
DX: I10 Essential (primary) hypertension (principal); E78.2 Mixed hyperlipidemia
CPT/HCPCS: 80048; 80061; 84439; 84443; 84450

== ENCOUNTER 2019-09-19 14:30 | Outpatient (RCR) | payer MEDICARE, SELFPAY ==
[2019-04-10 11:38] VITALS: BMI 25.4
--- NOTE | 2019-07-25 16:05 | ST.OPIE ---
Visit Care Team Role Provider Type Marcelo Soto MD Attending Provider Physician Primary Care Provider Referring Provider Specialty: Internal Medicine Address: [address] [place] [address], [id number] Email: [email or web address] Speech-Language Pathology Initial Evaluation ASSISTANT SITE MANAGER Clinical Swallow Evaluation Start: 07/25/19 14:31 Freq: Status: Active Protocol: Document 07/25/19 14:31 MINOR (Rec: 07/25/19 16:03 MINOR [email or web address]) Clinical Swallow Evaluation Session Time Visit Start Time 14:30 Visit Stop Time 15:15 Total Visit Minutes 45 Visit Information Visit Number Initial Evaluation Plan of Care Dates 07/25/19 - 10/25/19 Insurance Information Medicare Referral Referring Physician Dr. Padilla Reason for Referral Dysphagia s/p ACDF surgery Setting Assessment Location Outpatient Care Visit Type Note Type Initial Evaluation Next Note Type Next Note Type Treatment Note Patient Information Identification Type Name,ID Card History The pt is a 73-yr-old female s /p ACDF x2 (03/2019 and 2014). Per pt report, resent surgery was approached through scar from the first surgery. Pt stated, It feels like there's a shelf on left side catching my pills. She reported often coughing pills up and needing to re-attempt swallow, which is improved with use of yogurt carrier. Additionally, solids such as lettuce and chicken require time and/or multiple swallows to clear the pharynx. The pt reported the same experience following the first surgery, for which she received and was benefited by dysphagia therapy. She denies swallow difficulties prior to ACDF surgeries. At this time she is not avoiding foods d/t difficulty but expressed desire to increase ease and comfort with swallow. Subjective Observations The pt arrived on time and provided case history. Evaluation Liquids Trialed Thin Solids Trialed Puree,Dysphagia Advanced, Mechanical Soft,Regular Administration Type Cup Single Sip,Self-Feeding Oral Impairment WNL Oral Strategies Upright at 90 degrees Oral Phase Comments Oral Peripheral Exam: WNL. Symmetrical structures that are WNL of strength, coordination and ROM. Mild head tremor was observed. Surgical scar observed at left side of neck, near level of thyroid notch. Reduced left side muscle tone of neck is visible. The pt reports sticking sensation in throat at same level as surgical scar. Oral Phase: WNL. Pt exhibited good oral containment, bolus prep and formation, timely a/p propulsion and swallow trigger. No oral residue observed. Mastication normal and timely. Pharyngeal Impairment Mildly Impaired Pharyngeal Strategies Sitting Upright (90 deg),Turn Head Left,Turn Head Right,Chin Tuck,Double Swallow,Effortful Swallow,Small Bites and Sips, Alternate Liquids/Solids Pharyngeal Phase Comments Trials included thin liquid, applesauce, diced peaches, string cheese, and dry valerie cracker. Pt c/o sticking sensation with valerie cracker only, but consistently, requiring multiple swallows and/or liquid wash to clear. Assessed swallow of cracker with head turns to left and right, chin tuck, and elevated chin. The pt reported increased difficulty with head turns, greater with turn to left than to right. No benefit from chin tuck or elevation. No overt s/sx of aspiration were observed with all trials. 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 Changes in posture and compensatory swallow strategies were not significantly effective. Recommend dysphagia therapy targeting increasing strength, coordination and ROM of laryngeal and pharyngeal musculature to increase efficiency of swallow mechanism to bypass scar tissue and improve swallow safety and comfort. The pt was educated on assessment results and recommendations and was in agreement. Trained pt in laryngeal and pharyngeal swallow exercises. She was familiar with several of the exercises from dysphagia therapy after her first ACDF surgery, which were helpful at that time. She returned demonstration of all exercises. Instructions were provided orally with demonstration and in writing for home practice. All questions were answered. Diet Recommendations Liquids Order Thin Diet Order Regular Medication Recommendations As Tolerated Comments Pt currently takes meds whole in carrier. Aspiration Precautions Recommended Precautions Upright at 90 Degrees, Alternate Liquids/Solids,Small Bites/Sips,Effortful Swallow, Double Swallow Treatment Plan Placement Recommendations after Home Discharge Appropriate for Therapy Yes Therapy Recommendations Exercises to increase strength, coordination and ROM of laryngeal and pharyngeal musculature to increase efficiency of swallow mechanism to bypass scar tissue and improve swallow safety and comfort. Ongoing patient education and assessment Dysphagia Goals 1. The pt will perform swallow exercises independently to improve swallow safety and comfort. 2. The pt will tolerate all textures, thin liquids, and medications taken whole with liquid without pharyngeal sticking sensation and s/sx of aspiration. ASSISTANT SITE MANAGER Follow Up in 2 wks
--- NOTE | 2019-08-08 15:31 | ST.IPDYTX ---
Visit Care Team Role Provider Type Marcelo Soto MD Attending Provider Physician Primary Care Provider Referring Provider Specialty: Internal Medicine Address: [address] [place] [address], [id number] Email: [email or web address] MACHINE OPERATOR Dysphagia Treatment HOISTING MACHINE OPERATOR Dysphagia Treatment Start: 07/25/19 14:31 Freq: Status: Active Protocol: Document 08/08/19 15:24 MINOR (Rec: 08/08/19 15:30 MINOR [email or web address]) Dysphagia Treatment Session Time Visit Start Time 14:30 Visit Stop Time 15:15 Total Visit Minutes 45 Visit Information Visit Number 1 Setting Assessment Location Outpatient Care Visit Type Note Type Treatment Note Next Note Type Next Note Type Treatment Note Patient Information Identification Type Name,ID Card Subjective Observations The pt arrived on time. No new complaints. She reported much improved swallow but episode last night of chicken and rice sticking in her throat. However, she is now able to swallow most of her pills except the largest multivitamins with water without difficulty. She continues to split largets tablets in half. Treatment Treatment Activities Assessed pt's understanding and ability to perform swallow exercises. Clarified instructions in 2 of 5 exercises. Pt demonstrated correct performance. Education provided orally and with animated example of swallow RE normal vs abnormal swallow function and targets of prescribed exercises. Pt verbalized understanding. No oral trials were administered in this session. Assessment Assessment of Improvement The pt reports much improved swallow function, as described above. With clarification and redirection, she is performing exercises as prescribed. She demonstrates excellent understanding of therapy targets and is making very good progress toward goals. She has a surgical follow-up appt with Dr. Padilla in 2 wks (August 21) and will f/u with HOISTING MACHINE OPERATOR services the next week. Diet Recommendations Recommendations Continue Current Diet Liquids Order Thin Diet Order Regular Medication Recommendations As Tolerated Aspiration Precautions Recommended Precautions Upright at 90 Degrees,Small Bites/Sips Treatment Plan Placement Recommendation after Discharge Home,Outpatient Therapy Appropriate for Continued Therapy Yes Therapy Recommendations Exercises to increase strength , coordination and ROM of laryngeal and pharyngeal musculature to increase efficiency of swallow mechanism to bypass scar tissue and improve swallow safety and comfort. Ongoing patient education and assessment Dysphagia Goals 1. The pt will perform swallow exercises independently to improve swallow safety and comfort. 2. The pt will tolerate all textures, thin liquids, and medications taken whole with liquid without pharyngeal sticking sensation and s/sx of aspiration. Follow Up Plan 3 wks
--- NOTE | 2019-08-28 15:36 | ST.IPDYTX ---
Visit Care Team Role Provider Type Marcelo Soto MD Attending Provider Physician Primary Care Provider Referring Provider Specialty: Internal Medicine Address: [address] [place] [address], [id number] Email: [email or web address] FIRE HAZARD INSPECTOR Dysphagia Treatment FIRE HAZARD INSPECTOR Dysphagia Treatment Start: 07/25/19 14:31 Freq: Status: Active Protocol: Document 08/28/19 15:23 MINOR (Rec: 08/28/19 15:36 MINOR [email or web address]) Dysphagia Treatment Session Time Visit Start Time 14:30 Visit Stop Time 15:15 Total Visit Minutes 45 Visit Information Visit Number 2 Plan of Care Dates 07/25/19 - 10/25/19 Insurance Information Medicare Setting Assessment Location Outpatient Care Visit Type Note Type Treatment Note Next Note Type Next Note Type Treatment Note Patient Information Identification Type Name,ID Card Subjective Observations The pt arrived on time. No new complaints. She reported much improved swallow and able to swallow most pills with water or yogurt. She continues to split largest tablets in half. She experiences occasional sticking sensation, only 1-2x/ wk and only with evening meal, as opposed to several times a week and sometimes multiple times per day. She was informed by Dr. Padilla that the hardware implanted into the cervical spine does not protrude into the pharynx. Unable to access imaging d/t lack of access code. Treatment Liquids Trialed Thin Solids Trialed Puree,Dysphagia Advanced, Mechanical Soft Administration Type Cup Single Sip,Self-Feeding Oral Strategies Upright at 90 degrees Pharyngeal Strategies Sitting Upright (90 deg),Turn Head Left,Turn Head Right,Chin Tuck,Double Swallow,Effortful Swallow,Small Bites and Sips, Alternate Liquids/Solids Treatment Activities Assessed pt's swallow with oral trials. No overt s/sx of aspiration observed with all trials, and pt had no complaints of sticking sensation. Pt completed HEP tasks as prescribed. Clarification made to instructions of jaw opening exercise. Pt demonstrated understanding with compliance instructions. Education provided RE targets of each exercise. All questions were answered. Assessment Patient Response to Treatment Good Rehab Potential Good Assessment of Improvement The pt reports much improved swallow function, as described above. With clarification and redirection, she is performing exercises as prescribed. She demonstrates excellent understanding of therapy targets and is making very good progress toward goals. Agreed to f/u in 3 wks. Anticipate dc soon after, barring any negative changes. Diet Recommendations Recommendations Continue Current Diet Liquids Order Thin Diet Order Regular Medication Recommendations As Tolerated Aspiration Precautions Recommended Precautions Upright at 90 Degrees,Small Bites/Sips Treatment Plan Placement Recommendation after Discharge Home,Outpatient Therapy Appropriate for Continued Therapy Yes Therapy Recommendations Exercises to increase strength , coordination and ROM of laryngeal and pharyngeal musculature to increase efficiency of swallow mechanism to bypass scar tissue and improve swallow safety and comfort. Ongoing patient education and assessment Dysphagia Goals 1. The pt will perform swallow exercises independently to improve swallow safety and comfort. 2. The pt will tolerate all textures, thin liquids, and medications taken whole with liquid without pharyngeal sticking sensation and s/sx of aspiration. Follow Up Plan 3 wks
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
== END 2019-09-20 12:36 | disposition home or self-care (01) ==
LOC: SP 14:30
PROVIDERS: PCP Internal Medicine; Referring Provider Internal Medicine; Visit Provider Internal Medicine
DX: Z98.1 Arthrodesis status (principal); S16.1XXD Strain of muscle, fascia and tendon at neck level, subsequent encounter; R13.10 Dysphagia, unspecified
CPT/HCPCS: 92526; 92610

== ENCOUNTER 2020-02-17 05:41 | Emergency (ER) | payer MEDICARE, SELFPAY ==
[2019-04-10 11:38] VITALS: BMI 25.4
[2020-02-17] VITALS (15 sets, daily range): BP systolic 92–151; BP diastolic 50–77; PULSE 88–114; RESP 16–20; O2SAT 87–97; BMI 25.9
--- NOTE | 2020-02-17 05:52 | ED_ITS ---
HPI - General Adult <Brennna Xie DO - Last Filed: 02/17/20 18:01> General Chief complaint: Trauma Stated complaint: Fell down 20 stairs, modified trauma Time Seen by Provider: 02/17/20 05:51 Source: patient and EMS Mode of arrival: EMS Limitations: no limitations History of Present Illness HPI narrative: Patient is a 74-year-old female brought in by EMS as a modified trauma code secondary to falling down somewhere between 15 and 20 stairs. She states that last evening she was having some problems sleeping. She states she was reading. She got up to walk around and turned the wrong way and fell down stairs. States that she did hit her head but there was no loss of consciousness . She states that the only injury that she sustained was to her right shoulder where she has a deformity of the clavicle. She also states that she has lower back pain but this was potentially there prior to her fall but she thinks that it is slightly worse. She has no left arm pain. No abdominal pain. No leg pain. She was medicated with 20 mg of ketamine and 200 mcg of fentanyl by EMS prior to arrival. She arrived not on a backboard, not in a cervical collar and in a triangle sling on her right upper extremity Related Data Home Medications Medication Instructions Recorded Confirmed Multi-Day with Iron 1 tab PO DAILY 10/25/18 04/10/19 ascorbic acid (vitamin C) [Vitamin 500 mg PO DAILY 10/25/18 04/10/19 C] aspirin [Aspirin Low Dose] 81 mg PO DAILY 10/25/18 04/10/19 atorvastatin 20 mg PO DAILY 10/25/18 04/10/19 cholecalciferol (vitamin D3) 2,000 unit PO DAILY 10/25/18 04/10/19 [Vitamin D3] coQ10 (ubiquinol) 300 mg PO DAILY 10/25/18 04/10/19 diclofenac sodium [Voltaren-XR] 75 mg PO DAILY 10/25/18 04/10/19 duloxetine 60 mg PO DAILY 10/25/18 04/10/19 montelukast 10 mg PO QPM 10/25/18 04/10/19 omega 1-avo-wru-fish oil [Fish Oil] 1 cap PO DAILY 10/25/18 04/10/19 vitamin B complex 1 tab PO DAILY 10/25/18 04/10/19 PreserVision AREDS-2 1 tab PO DAILY 03/27/19 04/10/19 cetirizine-pseudoephedrine 1 tab PO DAILY 03/27/19 04/10/19 [Zyrtec-D] acetaminophen [Tylenol Arthritis 650 mg PO BID 04/04/19 04/10/19 Pain] Previous Rx's Medication Instructions Recorded tramadol 50 mg PO Q4HR PRN #20 tab 04/11/19 hydrocodone-acetaminophen 1 tab PO Q4-6H PRN #20 tab 02/17/20 ondansetron 4 mg PO TID-QID PRN #10 tab 02/17/20 Allergies Allergy/AdvReac Type Severity Reaction Status Date / Time Sulfa (Sulfonamide Allergy Severe Rash Verified 02/17/20 05:49 Antibiotics) oxycodone AdvReac Verified 02/17/20 10:16 Review of Systems <Brennan Xie DO - Last Filed: 02/17/20 18:01> Constitutional Constitutional: Denies headache(s) ENT Ears, Nose, Mouth, and Throat: Denies vertigo, Denies headache(s) and Denies neck pain Cardiovascular Cardiovascular: Denies chest pain and Denies dyspnea Respiratory Respiratory: Denies dyspnea Gastrointestinal Gastrointestinal: Denies abdominal pain, Denies nausea and Denies vomiting Musculoskeletal Musculoskeletal: Reports back pain (Lower back pain), Reports deformity (Right shoulder) and Denies neck pain Comments: Right shoulder pain Integumentary/Breasts Skin/Breast: Denies lesions and Denies rash Neurologic Neurologic: Denies behavioral changes, Denies confusion, Denies vertigo and Denies headache(s) Psychiatric Psychiatric: Denies behavioral changes and Denies confusion Hematologic/Lymphatic Hematologic/Lymphatic: Denies easy bleeding and Denies easy bruising Patient History <Brennan Xie DO - Last Filed: 02/17/20 18:01> Medical History Ankle fracture, right Anxiety Arthritis Fibromyalgia Heart murmur HTN (hypertension) Hx of ectopic Iron deficiency anemia Syncope Surgical History (Updated 03/27/19 @ 10:01 by Xenia Santos RN) History of hysterectomy Hx of blepharoplasty Hx of breast augmentation Hx of tonsillectomy S/P cervical spinal fusion (~2014) Status post Mohs micrographic surgery for basal cell carcinoma (BCC) Social History household members: spouse Smoking Status: Former smoker alcohol intake: current Smoking Status: Former smoker alcohol intake frequency: a few times a week Substance Use Type: does not use Exam <Brennan Xie DO - Last Filed: 02/17/20 18:01> Initial Vital Signs Initial Vital Signs: Vital Signs Pulse Rate 103 H 02/17/20 05:44 Respiratory Rate 20 02/17/20 05:44 Blood Pressure 151/77 H 02/17/20 05:44 Pulse Oximetry 87 L 02/17/20 05:44 Const General: cooperative, comfortable, well developed, well groomed and No acute distress Limitations: mental status not altered HENMT Head: normal to inspection and normocephalic Eyes General: appearance normal, both eyes and all related structures Chest Chest: No crepitus and No tenderness Resp Effort & Inspection: normal respiratory effort Auscultation: clear to auscultation bilaterally Cardio Rate: tachycardic Rhythm: regular rhythm Pulses: radial pulses present on the right GI Inspection: non-distended Palpation: soft, No firm and No tender Back/Spine/Pelvis Cervical Spine: No cervical spinal tenderness Thoracic/Lumbar Spine: No thoracic spinal tenderness and No lumbar spinal tenderness Sacrum: tenderness Skin Lesions: no lesions Rashes: no rashes Neuro General: patient alert, patient awake and patient oriented x3 Cognition: normal cognition Speech: speech normal Other: Sensation intact over her right lateral deltoid Extrem General: capillary refill normal Other: Pelvis is stable, bilateral lower extremities unremarkable to include hips knees and ankles and feet. Left upper extremity unremarkable. Patient's right wrist right hand right elbow unremarkable. Does have tenderness to palpation over the distal clavicle on the right. Psych Appearance: grossly normal and well kempt <Jovanni Claire DO - Last Filed: 02/17/20 12:29> Initial Vital Signs Initial Vital Signs: Vital Signs Pulse Rate 103 H 02/17/20 05:44 Respiratory Rate 20 02/17/20 05:44 Blood Pressure 151/77 H 02/17/20 05:44 Pulse Oximetry 87 L 02/17/20 05:44 Procedures <DO Alberto Bermeo Last Filed: 02/17/20 18:01> FAST Exam FAST Exam 1: Fluid in Morison's pouch: No Fluid in Splenorenal Junction: No Fluid around bladder, Transverse view: No Fluid around bladder, Sagittal view: No Fluid in Pericardial Sac: No Gross Wall Motion Abnormality: No Study normal for this patient: Yes Images saved for further review: No Scores <Brennan Xie DO - Last Filed: 02/17/20 18:01> GCS [place] coma scale eye opening: Spontaneous [place] coma scale verbal response: Orientated [place] coma scale motor response: Obey commands [place] coma scale total score: 15 Nexus Score for C-Spine Focal Neurologic deficit present: No Midline spinal tenderness present: No Altered level of conciousness present: No Intoxication present: No Distracting Injury Present: No Nexus Criteria for C-spine: 0 Course <Brennan Xie DO - Last Filed: 02/17/20 18:01> Orders Ordered: Discontinued Medications Hydrocodone Bitart/Acetaminophen (Hydrocodone/Acet 5/325 Tablet) 1 tab PO NOW ONE Stop: 02/17/20 10:09 Last Admin: 02/17/20 10:36 Dose: 1 tab Documented by: ISSA Hydromorphone HCl (Hydromorphone 1 Mg Inj) 1 mg IV NOW ONE Stop: 02/17/20 06:38 Last Admin: 02/17/20 06:45 Dose: 1 mg Documented by: WERNER Vital Signs Vital signs: Vital Signs - 8 hr 02/17/20 10:56 02/17/20 11:00 02/17/20 11:17 Pulse Rate 88 90 97 H Pulse Rate [Orthostatic Lying] Pulse Rate [Orthostatic Sitting] Pulse Rate [Orthostatic Standing] Respiratory Rate Blood Pressure 95/55 L 95/55 L 92/50 L Blood Pressure [Orthostatic Lying] Blood Pressure [Orthostatic Sitting] Blood Pressure [Orthostatic Standing] Pulse Oximetry 91 92 93 02/17/20 11:25 02/17/20 11:27 02/17/20 11:28 Pulse Rate 98 H 111 H 113 H Pulse Rate [Orthostatic Lying] Pulse Rate [Orthostatic Sitting] Pulse Rate [Orthostatic Standing] Respiratory Rate Blood Pressure 110/55 L 104/53 L 112/58 L Blood Pressure [Orthostatic Lying] Blood Pressure [Orthostatic Sitting] Blood Pressure [Orthostatic Standing] Pulse Oximetry 94 94 93 02/17/20 11:31 02/17/20 12:12 02/17/20 12:13 Pulse Rate 100 H 98 H Pulse Rate [Orthostatic Lying] 98 H Pulse Rate [Orthostatic Sitting] 111 H Pulse Rate [Orthostatic Standing] 114 H Respiratory Rate Blood Pressure 113/53 L Blood Pressure [Orthostatic Lying] 110/55 L Blood Pressure [Orthostatic Sitting] 104/53 L Blood Pressure [Orthostatic Standing] 112/58 L Pulse Oximetry 96 91 02/17/20 12:15 02/17/20 12:30 Pulse Rate 97 H 90 Pulse Rate [Orthostatic Lying] Pulse Rate [Orthostatic Sitting] Pulse Rate [Orthostatic Standing] Respiratory Rate 16 Blood Pressure 113/53 L Blood Pressure [Orthostatic Lying] Blood Pressure [Orthostatic Sitting] Blood Pressure [Orthostatic Standing] Pulse Oximetry 92 93 <Jovanni Claire, DO - Last Filed: 02/17/20 12:29> Course Course Narrative: patient received in signout from Dr. Xie. I have performed an independent history and physical. Per radiology recommendations MRI w/wo Head ordered and expected at abouut 0800. I placed a call to ortho regarding i mpressive AC separation. He (Dr. Padilla) is in agreement with plan to sling, treat pain, follow up. Currently awaiting MRI Orders Ordered: Discontinued Medications Hydrocodone Bitart/Acetaminophen (Hydrocodone/Acet 5/325 Tablet) 1 tab PO NOW ONE Stop: 02/17/20 10:09 Last Admin: 02/17/20 10:36 Dose: 1 tab Documented by: ISSA Hydromorphone HCl (Hydromorphone 1 Mg Inj) 1 mg IV NOW ONE Stop: 02/17/20 06:38 Last Admin: 02/17/20 06:45 Dose: 1 mg Documented by: WERNER Reevaluation(s) Reevaluation #1: patient does well with orthostatics. Slight elevating in HR, BP remains in 110s. She took a Vicodin, tolerated it well. Rx to [facility] told that [facility] is not open today. Transmitted Rx to [facility] in [place]. Called [facility] to cancel Hydrocodone. Left message to disrega rd this Rx Vital Signs Vital signs: Vital Signs - 8 hr 02/17/20 10:56 02/17/20 11:00 02/17/20 11:17 Pulse Rate 88 90 97 H Pulse Rate [Orthostatic Lying] Pulse Rate [Orthostatic Sitting] Pulse Rate [Orthostatic Standing] Respiratory Rate Blood Pressure 95/55 L 95/55 L 92/50 L Blood Pressure [Orthostatic Lying] Blood Pressure [Orthostatic Sitting] Blood Pressure [Orthostatic Standing] Pulse Oximetry 91 92 93 02/17/20 11:25 02/17/20 11:27 02/17/20 11:28 Pulse Rate 98 H 111 H 113 H Pulse Rate [Orthostatic Lying] Pulse Rate [Orthostatic Sitting] Pulse Rate [Orthostatic Standing] Respiratory Rate Blood Pressure 110/55 L 104/53 L 112/58 L Blood Pressure [Orthostatic Lying] Blood Pressure [Orthostatic Sitting] Blood Pressure [Orthostatic Standing] Pulse Oximetry 94 94 93 02/17/20 11:31 02/17/20 12:12 02/17/20 12:13 Pulse Rate 100 H 98 H Pulse Rate [Orthostatic Lying] 98 H Pulse Rate [Orthostatic Sitting] 111 H Pulse Rate [Orthostatic Standing] 114 H Respiratory Rate Blood Pressure 113/53 L Blood Pressure [Orthostatic Lying] 110/55 L Blood Pressure [Orthostatic Sitting] 104/53 L Blood Pressure [Orthostatic Standing] 112/58 L Pulse Oximetry 96 91 02/17/20 12:15 02/17/20 12:30 Pulse Rate 97 H 90 Pulse Rate [Orthostatic Lying] Pulse Rate [Orthostatic Sitting] Pulse Rate [Orthostatic Standing] Respiratory Rate 16 Blood Pressure 113/53 L Blood Pressure [Orthostatic Lying] Blood Pressure [Orthostatic Sitting] Blood Pressure [Orthostatic Standing] Pulse Oximetry 92 93 Medical Decision Making <Brennan Xie, - Last Filed: 02/17/20 18:01> Lab Data Result diagrams: 02/17/20 06:05 02/17/20 06:05 Labs: Lab Results 02/17/20 02/17/20 Range/Units 06:05 06:05 WBC 9.0 (4.5-11.0) X10^3/uL RBC 3.95 L (4.0-5.2) X10^6/uL Hgb 12.5 (12.0-16.0) g/dL Hct 37.0 (36-46) % MCV 93.8 (80-100) fL MCH 31.6 (26-34) PG MCHC 33.7 (30-36) % RDW 13.0 (11.6-14.8) % Plt Count 233 (150-400) X10^3/uL Neut % (Auto) 41.9 L (50-75) % Lymph % (Auto) 49.4 H (25-40) % [place] % (Auto) 6.8 (3-14) % Eos % (Auto) 1.2 L (2-4) % Baso % (Auto) 0.7 (0-2) % Neut # (Auto) 3800 (8947-1974) /uL Lymph # (Auto) 4400 (0695-9176) /uL [place] # (Auto) 600 (0-900) /uL Eos # (Auto) 100 (0-450) /uL Baso # (Auto) 100 (0-100) /uL Sodium 135 L (137-145) mmol/L Potassium 4.1 (3.4-5.1) mmol/L Chloride 104 (98-107) mmol/L Carbon Dioxide 29 (22-32) mmol/L BUN 27 H (7-17) mg/dL Creatinine 0.95 (0.52-1.04) mg/dL Estimated GFR 57.7 L (>60) mL/min BUN/Creatinine Ratio 28.4 H (6-22) Glucose 153 H (80-110) mg/dL Calcium 9.2 (8.4-10.2) mg/dL Imaging Data Chest x-ray: Radiologist's Impression: Normal heart and lungs Right AC joint dislocation Right shoulder x-ray: Radiologist's Impression: Acromioclavicular joint dislocation Lumbar spine x-ray: Radiologist's Impression: Degenerative disc disease at L4/L5 No acute fracture subluxation CT scan - head: Radiologist's Impression: No acute hemorrhage or mass effect Prevention are white matter disease which most likely reflects small vessel ischemic change. There is a ganglion looking or infarct are noted as well. There is an area of low attenuation in the right frontal white matter at the rooney-white junction. This may reflect small vessel ischemic change, although underlying vasogenic edema and or mass is not excluded. I recommend MRI with and without contrast for further evaluation. MDM Narrative Medical decision making narrative: Modified trauma called secondary to mechanism. Patient not on anticoagulation. Her only complaint is right shoulder pain. She does have a contusion on the right forehead. Cervical spine cleared by nexus criteria. Fast exam negative. Pelvis is stable. No lower extremity tenderness on exam. No lower extremity or left upper extremity abnormalities found on exam. X-ray show right-sided AC separation. This does account for the physical exam findings on the exam. Her lumbar spine x-rays show no acute pathology. CT scan of the head does have some abnormal findings however unsure if these represent mass, vasogenic edema or potential unusual presentation of a head bleed. Radiology recommended MRI. Care turned over to Dr. Claire a changes shift to follow up. Informed patient of the findings. She expressed understanding and agreement. <Jovanni Claire, - Last Filed: 02/17/20 12:29> Lab Data Labs: Lab Results 02/17/20 02/17/20 Range/Units 06:05 06:05 WBC 9.0 (4.5-11.0) X10^3/uL RBC 3.95 L (4.0-5.2) X10^6/uL Hgb 12.5 (12.0-16.0) g/dL Hct 37.0 (36-46) % MCV 93.8 (80-100) fL MCH 31.6 (26-34) PG MCHC 33.7 (30-36) % RDW 13.0 (11.6-14.8) % Plt Count 233 (150-400) X10^3/uL Neut % (Auto) 41.9 L (50-75) % Lymph % (Auto) 49.4 H (25-40) % [place] % (Auto) 6.8 (3-14) % Eos % (Auto) 1.2 L (2-4) % Baso % (Auto) 0.7 (0-2) % Neut # (Auto) 3800 (5565-6625) /uL Lymph # (Auto) 4400 (3819-5378) /uL [place] # (Auto) 600 (0-900) /uL Eos # (Auto) 100 (0-450) /uL Baso # (Auto) 100 (0-100) /uL Sodium 135 L (137-145) mmol/L Potassium 4.1 (3.4-5.1) mmol/L Chloride 104 (98-107) mmol/L Carbon Dioxide 29 (22-32) mmol/L BUN 27 H (7-17) mg/dL Creatinine 0.95 (0.52-1.04) mg/dL Estimated GFR 57.7 L (>60) mL/min BUN/Creatinine Ratio 28.4 H (6-22) Glucose 153 H (80-110) mg/dL Calcium 9.2 (8.4-10.2) mg/dL Imaging Data Chest x-ray: Radiologist's Impression: Tanesha Muniz 74 F [address] [address]RRrg ReportSigned Patient: Tanesha MunizR#: [id number]: 1945cct:[id number]/Sex: 74 / FDate of Service: 02/17/20Loc: EDAccession Number: [id number] Procedure: XR chest 1V Ordering Provider: Brennan Xie D.O. PROCEDURE: XR CHEST 1V INDICATIONS: fall down stairs TECHNIQUE: One view of the chest was acquired. COMPARISON: [facility], CR, XR SHOULDER RT MIN 2V, 02/17/2020, 5:51. [facility], CR, XR LUMBAR SPINE 2-3V, 02/17/2020, 6:23. [facility], CT, CT HEAD/BRAIN WO CON, 02/17/2020, 6:04. FINDINGS: Surgical changes and devices: Lower cervical spine fixation hardware is seen. Lungs and pleura: On this supine examination, no large pneumothorax or large pleural effusions are seen. No focal areas of lung consolidation are seen. Low lung volumes are noted. This causes a crowded appearance to the lung markings and limits evaluation. Mediastinum: Mediastinal contours appear normal. Heart size is normal. Bones and chest wall: Right acromioclavicular separation can be seen. No suspicious bony lesions. Overlying soft tissues appear unremarkable. IMPRESSION: There is right acromioclavicular separation. No acute cardiopulmonary process is seen on this supine portable chest study. Note: No significant discrepancy from the preliminary report. Dictated by: Teo Whitney M.D. on 02/17/2020 at 7:17 Approved by: Teo Whitney M.D. on 02/17/2020 at 7:19 CT scan - head: Radiologist's Impression: Tanesha Muniz 74 F [address] [address]JV Scan ReportSigned Patient: Tanesha MunizR#: [id number]: 1945cct:[id number]/Sex: 74 / FDate of Service: 02/17/20Loc: EDAccession Number: [id number] Procedure: CT head/brain wo con Ordering Provider: Brennan Xie D.O. PROCEDURE: CT HEAD/BRAIN WO CON INDICATIONS: fall down stairs and hit head TECHNIQUE: Noncontrast 4.5 mm thick angled axial sections acquired from the foramen magnum to the vertex, with coronal and sagittal reformats. For radiation dose reduction, the following was used: automated exposure control, adjustment of mA and/or kV according to patient size. COMPARISON: None. FINDINGS: Image quality: Excellent. CSF spaces: Basal cisterns are patent. No extra-axial fluid collections. The ventricles are symmetric in size and shape. Brain: There is focal low density seen involving the rooney-white matter interface the right frontal lobe, as on series 2, images 18 and 19. No intracranial bleeds or masses. There is cerebral volume loss for age, with resultant ventricular and sulcal prominence. There are periventricular and deep white matter chronic small vessel ischemic changes. Tiny basal ganglia lacunar infarcts are noted. There is intracranial internal carotid artery atherosclerosis. Skull and face: Calvarium and visualized facial bones appear intact, without suspicious lesions. Sinuses: Visualized sinuses and mastoids are clear. IMPRESSION: Focal low density involving the right frontal lobe. Please consider subacute infarction. No acute intracranial hemorrhage is seen. Note is made of age-appropriate brain parenchymal volume loss and chronic small vessel ischemic changes. Note: No significant discrepancy from the preliminary report. Dictated by: Teo Whitney M.D. on 02/17/2020 at 6:58 Approved by: Teo Whitney M.D. on 02/17/2020 at 7:00 Extremity x-ray #1: Radiologist's Impression: Tanesha Muniz 74 F [address] [address]EUam ReportSigned Patient: Tanesha MunizR#: [id number]: 7Acct:[id number]/Sex: 74 / FDate of Service: 02/17/20Loc: EDAccession Number: [id number] Procedure: XR shoulder RT min 2V Ordering Provider: Brennan Xie D.O. PROCEDURE: XR SHOULDER RT MIN 2V INDICATIONS: fall down stairs TECHNIQUE: 2 views of the shoulder were acquired. COMPARISON: [facility], CR, XR LUMBAR SPINE 2-3V, 02/17/2020, 6:23. [facility], CT, CT HEAD/BRAIN WO CON, 02/17/2020, 6:04. [facility], CR, XR CHEST 1V, 02/17/2020, 5:51. FINDINGS: Bones: There is right acromioclavicular separation, with the right clavicle high-riding by greater than 2 cm and overlapping the acromion. No meme displaced fractures. No suspicious bony lesions. Visualized ribs appear intact. Cervical spine fixation hardware is partially seen. Soft tissues: No suspicious soft tissue calcifications. The visualized lung demonstrates an unremarkable appearance. IMPRESSION: Acromioclavicular separation. Note: No significant discrepancy from the preliminary report. Dictated by: Teo Whitney M.D. on 02/17/2020 at 7:19 Approved by: Teo Whitney M.D. on 02/17/2020 at 7:20 Lumbar Spine Xray: Radiologist's Impression: Tanesha Muniz 74 F [address] [address]VGyk ReportSigned Patient: Tanesha MunizR#: [id number]: 7Acct:[id number]/Sex: 74 / FDate of Service: 02/17/20Loc: EDAccession Number: [id number] Procedure: XR lumbar spine 2-3V Ordering Provider: Brennan Xie D.O. PROCEDURE: XR LUMBAR SPINE 2-3V INDICATIONS: fall with lower spine pain TECHNIQUE: 2 views of the lumbar spine were acquired. COMPARISON: [facility], CT, CT HEAD/BRAIN WO CON, 02/17/2020, 6:04. [facility], CR, XR CHEST 1V, 02/17/2020, 5:51. FINDINGS: Bones: 5 [id number] vertebrae are present. There is normal bony alignment. No vertebral body compression fractures. No suspicious bony lesions. There is moderate to severe disc space narrowing seen at the L4-L5 level. Mild disc space narrowing is seen at L3-L4. The disc heights otherwise appear well- preserved. Lower lumbar spine facet arthropathy is seen. Soft tissues: Overlying bowel gas pattern is normal. There is a potential gallstone. Atherosclerotic calcification is noted. IMPRESSION: No acute fracture or other acute plain film abnormality can be seen. If there is point tenderness (or other clinical suspicion for a fracture not seen on these images) then a dedicated CT could be considered for further evaluation, if clinically appropriate. Degenerative changes are seen, which are worst at the L4-L5. Dictated by: Teo Whitney M.D. on 02/17/2020 at 7:00 Approved by: Teo Whitney M.D. on 02/17/2020 at 7:03 MRI Head: Radiologist's Impression: Tanesha Muniz 74 F 1945 [address] Resonance ReportSigned Patient: Tanesha MunizR#: [id number]: 1945cct:[id number]/Sex: 74 / FDate of Service: 02/17/20Loc: EDAccession Number: [id number] Procedure: MR head/brain wo/w con Ordering Provider: Jovanni Claire D.O. PROCEDURE: MR HEAD/BRAIN WO/W CON INDICATIONS: abnormal findings on head CT, request from radiology TECHNIQUE: Noncontrast axial T1 spin echo, axial T2 fast spin echo, sagittal and axial FLAIR, coronal T2 fast spin echo, axial gradient echo, axial diffusion and ADC through the brain. After the administration of contrast, axial and coronal T1 spin echo with fat saturation through the brain. COMPARISON: [facility], CT, CT HEAD/BRAIN WO CON, 02/17/2020, 6:04. FINDINGS: Image quality: Excellent. CSF spaces: Basal cisterns are patent. No extra-axial fluid collections. Ventricles are normal in size and shape. Brain: No midline shift. No intracranial bleeds or masses. No abnormal intracranial enhancement. There is cerebral volume loss for age. There is periventricular white matter chronic small vessel ischemic change. The brainstem appears normal. Diffusion-weighted images demonstrate no acute ischemic insults. There is a remote infarct seen involving the deep white matter of the right frontal lobe. Normal intravascular flow voids are present. Relatively prominent perivascular spaces are noted. Skull and face: Calvarial marrow is normal in signal. Orbits appear normal. Sinuses: Sinuses and mastoids appear clear. IMPRESSION: No findings of acute or subacute infarction can be seen. 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 No masses or abnormal enhancement can be seen. Note is made of age-appropriate brain parenchymal volume loss and chronic small vessel ischemic changes. Dictated by: Teo Whitney M.D. on 02/17/2020 at 8:19 Approved by: Teo Whitney M.D. on 02/17/2020 at 8:21 Discharge Plan Departure Patient Disposition: Home Clinical Impression: Separation of right acromioclavicular joint, type 3 Qualifiers: Encounter type: initial encounter Qualified Code(s): S43.101A - Unspecified dislocation of right acromioclavicular joint, initial encounter Fall Qualifiers: Encounter type: initial encounter Qualified Code(s): W19.XXXA - Unspecified fall, initial encounter Contusion of forehead Qualifiers: Encounter type: initial encounter Qualified Code(s): S00.83XA - Contusion of other part of head, initial encounter Instructions: How to Use a Sling, DI for AC Joint Separation Activity Restrictions/Additional Instructions: *You have been diagnosed with [shoulder separation and various other minor mu sculoskeletal injuries relating to fall. Your images are very reassuring. I've spoken with orthopedics about your shoulder and as I told you, they recommend only sling, and pain control. *What to do: *Take medications as directed: [facility] *Follow up with your primary care provider in 2-3 days, call for an appointment. Let them know you were seen in the Emergency Department and that we ask that you be seen in follow up *Return to ER if you should have any new, worsening or concerning symptoms, such as [ persistent vomiting, passing out, worsening pain or other bothersome symptoms] You have been prescribed narcotic medications. While on these medications you cannot drive or operate heavy machinery. Additionally you cannot sign legal documents or perform any duties such as this. 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 Please understand that we cannot provide further refills of narcotics or controlled substances through the ED and your pain management will need to be through your Primary Care Provider Prescriptions: New ondansetron 4 mg tablet,disintegrating 4 mg PO TID-QID PRN (Reason: nausea and vomiting) Qty: 10 RF: 0 hydrocodone-acetaminophen 5-325 mg tablet 1 tab PO Q4-6H PRN (Reason: pain) Qty: 20 RF: 0 No Action atorvastatin 20 mg Tablet 20 mg PO DAILY RF: 0 diclofenac sodium [Voltaren-XR] 100 mg Tablet Extended Release 24 Hr 75 mg PO DAILY RF: 0 aspirin [Aspirin Low Dose] 81 mg Tablet,Delayed Release (Dr/Ec) 81 mg PO DAILY RF: 0 ascorbic acid (vitamin C) [Vitamin C] 500 mg Tablet 500 mg PO DAILY RF: 0 vitamin B complex Tablet 1 tab PO DAILY RF: 0 montelukast 10 mg Tablet 10 mg PO QPM RF: 0 cholecalciferol (vitamin D3) [Vitamin D3] 1,000 unit Capsule 2,000 unit PO DAILY RF: 0 duloxetine 60 mg Capsule,Delayed Release(Dr/Ec) 60 mg PO DAILY RF: 0 Multi-Day with Iron 18-400 mg-mcg Tablet 1 tab PO DAILY RF: 0 omega 9-lus-jvl-fish oil [Fish Oil] 1,000 mg (120 mg-180 mg) Capsule 1 cap PO DAILY RF: 0 coQ10 (ubiquinol) 100 mg Capsule 300 mg PO DAILY RF: 0 cetirizine-pseudoephedrine [Zyrtec-D] 5-120 mg Tablet Extended Release 12 Hr 1 tab PO DAILY RF: 0 PreserVision AREDS-2 [id number] hr-bqib-zb-mg Capsule 1 tab PO DAILY RF: 0 acetaminophen [Tylenol Arthritis Pain] 650 mg Tablet Extended Release 650 mg PO BID RF: 0 tramadol 50 mg Tablet 50 mg PO Q4HR PRN (Reason: Pain, Moderate (4-6)) Qty: 20 RF: 0 Referrals: Marcelo Soto MD [Primary Care Provider] - Piter Padilla MD [Physician] -
--- NOTE | 2020-02-17 06:06 | DI.RAD.S_ITS ---
PROCEDURE: XR LUMBAR SPINE 2-3V INDICATIONS: fall with lower spine pain TECHNIQUE: 2 views of the lumbar spine were acquired. COMPARISON: [facility], CT, CT HEAD/BRAIN WO CON, 02/17/2020, 6:04. [facility], CR, XR CHEST 1V, 02/17/2020, 5:51. FINDINGS: Bones: 5 udl-ynn-mczjoeg vertebrae are present. There is normal bony alignment. No vertebral body compression fractures. No suspicious bony lesions. There is moderate to severe disc space narrowing seen at the L4-L5 level. Mild disc space narrowing is seen at L3-L4. The disc heights otherwise appear well-preserved. Lower lumbar spine facet arthropathy is seen. Soft tissues: Overlying bowel gas pattern is normal. There is a potential gallstone. Atherosclerotic calcification is noted. IMPRESSION: No acute fracture or other acute plain film abnormality can be seen. If there is point tenderness (or other clinical suspicion for a fracture not seen on these images) then a dedicated CT could be considered for further evaluation, if clinically appropriate. Degenerative changes are seen, which are worst at the L4-L5. Dictated by: Teo Whitney M.D. on 02/17/2020 at 7:00 Approved by: Teo Whitney M.D. on 02/17/2020 at 7:03
[2020-02-17 06:42] LABS: Add Manual Diff / Slide Review NO; Basophils Absolute Auto 100 /uL (0-100); Basophils Percent Auto 0.7 % (0-2); Eosinophils Absolute Auto 100 /uL (0-450); Eosinophils Percent Auto 1.2 % (2-4); Hemoglobin 12.5 g/dL (12.0-16.0); Lymphocytes Absolute Auto 4400 /uL (1100-4500); Lymphocytes Percent Auto 49.4 % (25-40); Mean Corpuscular HGB Conc 33.7 % (30-36); Mean Corpuscular Hemoglobin 31.6 PG (26-34); Mean Corpuscular Volume 93.8 fL (80-100); Monocytes Absolute Auto 600 /uL (0-900); Monocytes Percent Auto 6.8 % (3-14); Neutrophils Absolute Auto 3800 /uL (1500-7000); Neutrophils Percent Auto 41.9 % (50-75); Platelet Count 233 X10^3/uL (150-400); Red Blood Cell Count 3.95 X10^6/uL (4.0-5.2)
[2020-02-17] MEDS: HYDROMORPHONE 1 MG INJ IV (06:45)
[2020-02-17 06:49] LABS: BUN Creatinine Ratio 28.4 (6-22); Blood Urea Nitrogen 27 mg/dL (7-17); Calcium 9.2 mg/dL (8.4-10.2); Carbon Dioxide 29 mmol/L (22-32); Chloride 104 mmol/L (98-107); Estimated Glomerular Filt Rate 57.7 mL/min (>60); Glucose 153 mg/dL (80-110); HEMOLYSIS 19 (0-50); Potassium 4.1 mmol/L (3.4-5.1); Sodium 135 mmol/L (137-145)
--- NOTE | 2020-02-17 06:59 | DI.MRI.S_ITS ---
PROCEDURE: MR HEAD/BRAIN WO/W CON INDICATIONS: abnormal findings on head CT, request from radiology TECHNIQUE: Noncontrast axial T1 spin echo, axial T2 fast spin echo, sagittal and axial FLAIR, coronal T2 fast spin echo, axial gradient echo, axial diffusion and ADC through the brain. After the administration of contrast, axial and coronal T1 spin echo with fat saturation through the brain. COMPARISON: [facility], CT, CT HEAD/BRAIN WO CON, 02/17/2020, 6:04. FINDINGS: Image quality: Excellent. CSF spaces: Basal cisterns are patent. No extra-axial fluid collections. Ventricles are normal in size and shape. Brain: No midline shift. No intracranial bleeds or masses. No abnormal intracranial enhancement. There is cerebral volume loss for age. There is periventricular white matter chronic small vessel ischemic change. The brainstem appears normal. Diffusion-weighted images demonstrate no acute ischemic insults. There is a remote infarct seen involving the deep white matter of the right frontal lobe. Normal intravascular flow voids are present. Relatively prominent perivascular spaces are noted. Skull and face: Calvarial marrow is normal in signal. Orbits appear normal. Sinuses: Sinuses and mastoids appear clear. IMPRESSION: No findings of acute or subacute infarction can be seen. 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 No masses or abnormal enhancement can be seen. Note is made of age-appropriate brain parenchymal volume loss and chronic small vessel ischemic changes. Dictated by: Teo Whitney M.D. on 02/17/2020 at 8:19 Approved by: Teo Whitney M.D. on 02/17/2020 at 8:21
[2020-02-17] MEDS: HYDROCODONE/ACET 5/325 TABLET 1 TAB PO (10:36)
== END 2020-02-17 12:42 | disposition home or self-care (01) ==
PROVIDERS: Emergency Medicine; Emergency Provider Emergency Medicine; PCP Internal Medicine
DX: S00.83XA Contusion of other part of head, initial encounter (principal); S43.101A Unspecified dislocation of right acromioclavicular joint, initial encounter; S49.91XA Unspecified injury of right shoulder and upper arm, initial encounter; W10.9XXA Fall (on) (from) unspecified stairs and steps, initial encounter; M54.5 Low back pain; I10 Essential (primary) hypertension
CPT/HCPCS: 36415; 70450; 70553; 71045; 72100; 73030; 80048; 85025; 99284; J1170

== ENCOUNTER → 2021-01-12 14:21 | Outpatient (CLI) | payer MEDICARE, SELFPAY ==
[2019-04-10 11:38] VITALS: BMI 25.4
--- NOTE | 2021-01-12 14:25 | DI.MG.S_ITS ---
BILATERAL DIGITAL SCREENING MAMMOGRAM 3D/2D WITH CAD WITH AUGMENTATION: 01/12/2021 CLINICAL: Patient presents for routine screening. S/P bilateral augmentation. Comparison is made to exams dated: 03/17/2017 mammogram, 01/20/2016 mammogram, 03/28/2014 mammogram - [facility], and 10/20/2018 mammogram - [facility]. The tissue of both breasts is predominantly fatty. Current study was also evaluated with a Computer Aided Detection (CAD) system. Bilateral breast implants are stable. There are benign calcifications in both breasts. No significant masses, calcifications, or other findings are seen in either breast. There has been no significant interval change. IMPRESSION: BENIGN There is no mammographic evidence of malignancy. A 1 year screening mammogram is recommended. This exam was interpreted at Station ID: [id number]. NOTE: For mammograms, a report in lay terms will be sent to the patient. Approximately 15% of breast malignancies will not be visualized mammographically. In the management of a palpable breast mass, a negative mammogram must not discourage biopsy of a clinically suspicious lesion. Electronically Signed By: Richard lazaro/dawn:01/12/2021 14:58:10 letter sent: Normal Exam ACR BI-RADS Category 2: Benign Finding(s) 3342F
== END ==
PROVIDERS: PCP Internal Medicine; Referring Provider Internal Medicine; Visit Provider Internal Medicine
DX: Z12.31 Encounter for screening mammogram for malignant neoplasm of breast (principal); Z98.82 Breast implant status
CPT/HCPCS: 77063; 77067